=== PATIENT | male | born 1970 | race American Indian/Alaskan Native ===

== ENCOUNTER 2020-11-21 02:27 | Emergency (ER) | payer SELFPAY ==
[2020-11-21] MEDS ORDERED: SODIUM BICARB 8.4% 50 MEQ/50 ML SYRINGE IV ONE (02:30)
[2020-11-21] MEDS ORDERED: EPINEPHrine 1 MG/10 ML SYRINGE ONE (02:30)
--- NOTE | 2020-11-21 03:17 | Emergency Department Report ---
ED CPR HPI - General Stated Complaint: CARDIAC ARREST Time Seen by Provider: 11/21/20 02:33 - History of Present Illness Initial Comments: Patient is a 50-year-old F [place] male who has a past medical history of hypertension who is presenting in cardiac arrest. Family and friends state that they had gone bowling and the patient was was fine and asymptomatic. He had had several drinks but was in good spirits. Was returning back to the house friends and family were relaxing having a good time and the patient is grabbed his chest and stated that he felt like he was going to pass out and then lost consciousness. Girlfriend performed CPR briefly and paramedics were called. Patient was found to be in V. fib he was shocked 3 times and given several doses of epinephrine. A Chad airway was inserted. Patient then went into asystole on his arrival. ED Review of Systems ROS: Stated complaint: CARDIAC ARREST Other details as noted in HPI Comment: All other systems reviewed and negative ED Physical Exam - General General appearance: obtunded - Head Head exam: Present: atraumatic, normocephalic - Eye Eye exam: Present: other (fixed and dilated) - Neck Neck exam: Present: normal inspection - Respiratory Respiratory exam: Present: other (non spontaneous breaths) - Cardiovascular Cardiovascular Exam: Present: other (no spontqaneous heart tones) - GI/Abdominal GI/Abdominal exam: Present: distended - Neurological Exam Neurological exam: Present: other (GCS 3) ED Medical Decision Making - Medical Decision Making On arrival the patient had CPR continued. Patient was in asystole. Chad airway was removed and he was intubated with 8 oh endotracheal tube using a glide scope. They would intubate the patient with ease on first attempt. Patient was given total 7 rounds of epinephrine as well as calcium and bicarb. We are unable to resuscitate the patient and he was pronounced . Family was notified. Critical care attestation.: If time is entered above; I have spent that time in minutes in the direct care of this critically ill patient, excluding procedure time. ED Disposition Clinical Impression: Cardiopulmonary arrest Disposition: DC-20 Is pt being admited?: Yes Does the pt Need Aspirin: No Condition: Stable
== END 2020-11-21 05:15 ==
LOC: ED 02:27
DX: I46.9 Cardiac arrest, cause unspecified (principal); I10 Essential (primary) hypertension
CPT/HCPCS: 92950; 99285; J0171